=== PATIENT | female | born 2000 | race Hispanic/Latino ===

== ENCOUNTER 2025-02-21 08:30 | Emergency (ER) | payer OTHER, SELFPAY ==
--- NOTE | ~2025-02-21 | US_ITS ---
EXAMINATION: US OB <=14 wk fetus w TV DATE: 02/21/2025 10:54 INDICATION: Slight vaginal bleeding. Uncertain LMP TECHNIQUE: Real-time transabdominal and transvaginal obstetric ultrasound. FINDINGS: The uterus measures 9.5 x 5.3 x 7.0. There is an intrauterine gestational sac, with pole identified. The crown rump length measures 0.74 cm, which correlates with a estimated gestational age of 6 weeks and 4 days. heart tones are not identified. Small to moderate amount of fluid about the gestational sac consistent with a subchorionic hemorrhage. Probable 3 mm yolk sac identified. Right ovary measures 2.2 x 1.3 x 1.2 cm. Normal vascular flow to the right ovary. Left ovary measures 2.3 x 1.3 x 1.7 cm. Normal vascular flow to the left ovary. There is a 1.3 x 1.0 x 1.2 cm possible left-sided corpus luteum. IMPRESSION: 1. No heart tones are identified. Ultrasound findings are suggestive of a demise. 2. pole and gestational sac are identified. [place]-rump length equals 0.74 cm which correlates with an estimated gestational age of 6 weeks 4 days. 3. Small to moderate sized subchorionic hemorrhage about the gestational sac. Cristina, the latter working with the patient, was notified about the findings on 02/21/2025 at 11:[address] Shaffer, read back occurred. Reviewed, dictated and finalized at location Q.
[2025-02-21 08:45] VITALS: BP 121/77; PULSE 90; RESP 16; TEMP 36.8; O2SAT 100
[2025-02-21 09:01] LABS: Hematocrit 44.8 % (37.0-47.0); Hemoglobin 14.5 g/dL (12.0-15.0); Immature Granulocyte Percent A 0.3 % (0-0.5); Lymphocytes Absolute Auto 3.26 K/mm3 (0.9-3.2); Mean Corpuscular HGB Conc 32.4 g/dl (32-36); Mean Corpuscular Hemoglobin 29.7 pg (26-34); Mean Corpuscular Volume 91.6 fl (80-100); Nucleated Red Blood Cells Absolute Auto 0.000 K/mm3 (0.0-0.012); Nucleated Red Blood Cells Perc 0.0 % (0.0-0.2); Platelet Count Result 251 k/mm3 (150-375); Red Blood Count 4.89 M/mm3 (4.2-5.4); White Blood Count 10.0 K/mm3 (4.5-10.0)
[2025-02-21 09:12] LABS: Alanine Aminotransferase 24 U/L (6-35); Albumin Level 4.9 g/dL (3.5-5.1); Alkaline Phosphatase 91 U/L (38-126); Anion Gap 12 mmol/L (4-12); Aspartate Amino Transferase 42 U/L (14-36); Bilirubin,Total 0.6 mg/dL (0.2-1.3); Blood Urea Nitrogen 10 mg/dL (7-17); Calcium 9.6 mg/dL (8.4-10.2); Carbon Dioxide 23 mmol/L (22-30); Chloride 103 mmol/L (98-107); Estimated Glomerular Filt Rate > 60; Glucose 96 mg/dL (65-110); INR 0.9; Potassium 3.6 mmol/L (3.4-5.0); Prothrombin Time 12.3 Seconds (11.1-14.7); Sodium 138 mmol/L (137-145); Total Protein 9.2 g/dL (6.3-8.2)
[2025-02-21 09:13] LABS: Partial Thromboplastin Time 31.5 Seconds (22.3-36.8)
[2025-02-21 09:34] LABS: Beta HCG Quantitative 3734.10 mIU/ML
--- NOTE | 2025-02-21 09:40 | ED.PREGNANCY ---
HPI - General Chief complaint: Vaginal Bleeding Stated complaint: vaginal bleeding, Time Seen by Provider: 02/21/25 08:58 Source: patient Mode of arrival: ambulatory Limitations: no limitations History of Present Illness HPI Narrative: Patient is a 25 year old female who presents the ED with report of vaginal bleeding. Patient is primarily Salvadorean-speaking. [employer] trauma surgeon was utilized for assistance with translation. Reports she is approximately 13 weeks gestation. Has had positive test at home. Does not believe she had a menstrual cycle in December or January, but is unsure of her last normal menstrual period. This morning, she began having a small amount of bright red vaginal bleeding. Believes it has since stopped. Denies significant cramping. Denies any other symptoms. Does not currently have an OBGYN. Related Data Allergies Allergy/AdvReac Type Severity Reaction Status Date / Time No Known Allergies Allergy Verified 02/21/25 08:49 Review of Systems Review of Systems: All systems reviewed & are unremarkable except as noted in HPI. All systems reviewed & are unremarkable except as noted in HPI and below Exam Narrative: GENERAL: Well appearing, well-nourished, non-toxic, in no acute distress. HEAD: Normocephalic, atraumatic. RESPIRATORY: Airway patent, respirations nonlabored. Clear to auscultation bilaterally, no rales, rhonchi, wheezing. CARDIOVASCULAR: Regular rate and rhythm without murmurs, rubs, or gallops. ABDOMINAL: Soft, nontender, nondistended. Normoactive BS. MUSCULOSKELETAL: Moves all extremities. No gross deformities. SKIN: Warm, dry, normal color. NEURO: A&O X3. Speech clear. PSYCHIATRIC: Appropriate mood and affect. Normal interaction. Course Vital Signs Vital signs: Vital Signs Temperature 98.2 F 02/21/25 08:45 Pulse Rate 90 02/21/25 08:45 Respiratory Rate 16 02/21/25 08:45 Blood Pressure 121/77 02/21/25 08:45 Pulse Oximetry 100 02/21/25 08:45 Oxygen Delivery Room Air 02/21/25 08:45 Temperature 98.2 F 02/21/25 08:45 Pulse Rate 89 02/21/25 11:22 Respiratory Rate 16 02/21/25 11:22 Blood Pressure 124/80 02/21/25 11:22 Pulse Oximetry 100 02/21/25 11:22 Oxygen Delivery Room Air 02/21/25 08:45 MDM - OB/Uterine Contractions MDM Narrative Medical decision making narrative: Patient presented to ED approximately 13 weeks gestation, light vaginal bleeding this morning. Does not currently have an OBGYN. Has not been evaluated for this . Vital signs stable. No evidence of hemodynamic instability. Cbc without leukocytosis or anemia. Remainder basic laboratory studies are unremarkable. Beta hCG 3700. Blood type is O positive, no indication for RhoGAM. Ob ultrasound obtained and unfortunately shows evidence of demise, measuring with 6 weeks. Does show small to moderate subchorionic hematoma Discussed case with Dr. Marcus OBGYJoby construction operations manager, advised likely body trying to miscarry with subchorionic findings. Recommended repeat beta hcg Wednesday, f/u in office for repeat US next week. Discussed lab/imaging findings and OBGYN recommendations with patient. Patient understandably very upset. She is in agreement with recommendations and plan. Discussed bleeding precautions, strict return precautions. Patient voiced understanding. Discharged in stable condition. Medical Records Attestation: I reviewed the patient's medical records. Lab Data Attestation: I reviewed the patient's lab results. 02/21/25 08:52 02/21/25 08:52 Labs: Lab Results 02/21/25 02/21/25 Range/Units 08:52 11:30 WBC 10.0 (4.5-10.0) K/mm3 RBC 4.89 (4.2-5.4) M/mm3 Hgb 14.5 (12.0-15.0) g/dL Hct 44.8 (37.0-47.0) % MCV 91.6 (80-100) fl MCH 29.7 (26-34) pg MCHC 32.4 (32-36) g/dl RDW 13.2 (11.5-14.5) % Plt Count 251 (150-375) k/mm3 MPV 10.1 (7.4-10.4) fl Immature Gran % (Auto) 0.3 (0-0.5) % Neut % (Auto) 56.0 (45.5-73.1) % Lymph % (Auto) 32.6 (18.3-44.2) % [place] % (Auto) 9.5 H (2.6-8.5) % Eos % (Auto) 1.3 (0-4.4) % Baso % (Auto) 0.3 (0.2-1.2) % Lymph # (Auto) 3.26 H (0.9-3.2) K/mm3 [place] # (Auto) 1.0 H (0.1-0.6) K/mm3 Eos # (Auto) 0.1 (0-0.3) K/mm3 Baso # (Auto) 0.0 (0.0-0.1) K/mm3 Abs Immat Gran (auto) 0.03 (0.00-0.031) K/mm3 Absolute Neuts (auto) 5.6 (1.3-6.7) K/mm3 Absolute Nucleated RBC 0.000 (0.0-0.012) K/mm3 Nucleated RBC % 0.0 (0.0-0.2) % PT 12.3 (11.1-14.7) Seconds INR 0.9 APTT 31.5 (22.3-36.8) Seconds Sodium 138 (137-145) mmol/L Potassium 3.6 (3.4-5.0) mmol/L Chloride 103 (98-107) mmol/L Carbon Dioxide 23 (22-30) mmol/L Anion Gap 12 (4-12) mmol/L BUN 10 (7-17) mg/dL Creatinine 0.53 L (0.7-1.0) mg/dL Estim Creat Clear Calc Not Reportable Estimated GFR > 60 (59 - ) Glucose 96 (65-110) mg/dL Calcium 9.6 (8.4-10.2) mg/dL Total Bilirubin 0.6 (0.2-1.3) mg/dL AST 42 H (14-36) U/L ALT 24 (6-35) U/L Alkaline Phosphatase 91 (38-126) U/L Total Protein 9.2 H (6.3-8.2) g/dL Albumin 4.9 (3.5-5.1) g/dL Beta HCG, Quant 3734.10 mIU/ML Urine Color Yellow (Yellow) Urine Appearance Turbid H (Clear) Urine pH 8.0 (5.0-9.0) Ur Specific [place] 1.018 (1.001-1.035) Urine Protein Negative (Negative) mg/dL Urine Glucose (UA) Negative (Negative) mg/dL Urine Ketones Trace H (Negative) mg/dL Ur Blood (Man) 2+ H (Negative) Urine Nitrate Negative (Negative) Urine Bilirubin Negative (Negative) Urine Urobilinogen 0.2 (<2.0) mg/dL Leukocyte Esterase Rfl Negative (Negative) BRIDGETT/UL Urine RBC 0-2 (0-2) /hpf Urine WBC 0-5 (0-3) /hpf Ur Squamous Epith Cells Few (Few) /hpf Urine Bacteria None seen /hpf Urine Casts 0-2 Blood Type O Positive Antibody Screen Negative Screen Not Reportable Baby's Blood Type Not Reportable Baby's KANDACE Not Reportable Doses of RhIg Required 0 Imaging Data Attestation: I personally reviewed and interpreted this imaging study as follows: Radiologist's impression: ITS Impressions Obstetrics Ultrasound 02/21/25 11:06 IMPRESSION: 1. No heart tones are identified. Ultrasound findings are suggestive of a demise. 2. pole and gestational sac are identified. [place]-rump length equals 0.74 cm which correlates with an estimated gestational age of 6 weeks 4 days. 3. Small to moderate sized subchorionic hemorrhage about the gestational sac. Cristina, the latter working with the patient, was notified about the findings on 02/21/2025 at 11:[address] Shaffer, read back occurred. Discharge Plan Discharge Clinical Impression: demise Patient Disposition: Home Condition: Stable Instructions: Antibiotic Form, Miscarriage (ED) Additional Instructions: Obtain repeat blood hormone test at outpatient lab in the front of the hospital on Wednesday. Take lab order sheet with you. Follow up with OBGYN for further evaluation. Call office today to make appointment next week. Return to the ED if you experience worsening or severe bleeding or pain, unable to keep down food or drink, dizziness or lightheadedness, passing out, or any other symptoms of concern. Patient Language: Salvadorean Other Ambulatory Orders: Beta HCG Quantitative (Routine) Timeframe: [id number] Location: Determined by Patient Ordered By: Cristina Douglass Follow-up/Referrals: PHYSICIAN,YARDER ENGINEER [Primary Care Provider, Internal Medicine] Mingo Marcus MD [Physician, EXECUTIVE VICE PRESIDENT AND CHIEF FINANCIAL OFFICER] Referral Note: OBGYN Stand Alone Forms: Work/School Release IP Time of Disposition: 12:27
--- NOTE | 2025-02-21 11:20 | PC.NURSE ---
pt unable to provide urine specimen at this time. pt is declining straight cath. states she will hit her call light when she is able to provide a urine sample. call light within reach.
[2025-02-21 11:22] VITALS: BP 124/80; PULSE 89; RESP 16; O2SAT 100
[2025-02-21 11:45] LABS: Add Urine Microscopic? YES; Appearance Urine Turbid (Clear); Glucose Urine UA Negative (Negative); Leukocyte Esterase Ur Negative LEU/UL (Negative); Nitrate Urine Negative (Negative); Non Pathogenic Casts 0-2; Specific Grav Ur 1.018 (1.001-1.035)
== END 2025-02-21 12:53 | disposition home or self-care (01) ==
PROVIDERS: Emergency Medicine; Emergency Provider Physician Assistant
DX: O02.1 Missed abortion (principal)
CPT/HCPCS: 36415; 76801; 76817; 80053; 81001; 84702; 85025; 85461; 85610; 85730; 86850; 86900; 86901; 99284